=== PATIENT | male | born 1995 | race Caucasian/White ===

== ENCOUNTER 2021-04-22 14:25 | Emergency (ER) | payer OTHER, SELFPAY ==
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
[2021-04-22 14:36] VITALS: BP 104/60; BP 122/78; PULSE 110; PULSE 77; RESP 16; TEMP 36.7; O2SAT 100; BMI 23.1
[2021-04-22] MEDS: Acetaminophen 325 MG TABLET 975 MG PO (15:28)
[2021-04-22] MEDS: Ibuprofen 800 MG TABLET PO (15:29)
[2021-04-22] MEDS: oxyCODONE HCl Immed Release 5 MG TABLET PO (15:29)
[2021-04-22] MEDS: Diphth,Pertus(ACell),Tet Adult 0.5 ML SYRINGE IM (15:38)
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
[2021-04-22] MEDS: Lidocaine HCl 1 % 20 ML VIAL SUBCUT (17:14)
== END 2021-04-22 17:17 | disposition home or self-care (01) ==
PROVIDERS: Emergency Provider Emergency Medicine Emergency Medical Services
DX: S61.511A Laceration without foreign body of right wrist, initial encounter (principal); V03.00XA Pedestrian on foot injured in collision with car, pick-up truck or van in nontraffic accident, initial encounter; Y93.89 Activity, other specified; Y92.59 Other trade areas as the place of occurrence of the external cause; Y99.0 Civilian activity done for income or pay
CPT/HCPCS: 12042; 73110; 90471; 90715; 99283; 99291

== ENCOUNTER 2021-05-04 09:06 | Outpatient (REF) | payer OTHER, SELFPAY ==
--- NOTE | ~2021-05-04 | XR_ITS ---
EXAMINATION: XR HAND, RIGHT CLINICAL INFORMATION: Right hand pain. COMPARISON: Right wrist radiographs dated 04/22/2021. TECHNIQUE: PA, lateral, and oblique views of the right hand. FINDINGS: The bones and soft tissues are normal. No fracture. Alignment is anatomic. Joint spaces are maintained. No erosions or soft tissue calcifications. XR/XR hand RT min 3V IMPRESSION: Unremarkable examination.
== END 2021-05-04 09:07 | disposition home or self-care (01) ==
LOC: HO.HOSX 09:06
PROVIDERS: Visit Provider Orthopaedic Surgery
DX: S63.612A Unspecified sprain of right middle finger, initial encounter (principal); S61.511A Laceration without foreign body of right wrist, initial encounter; R20.0 Anesthesia of skin
CPT/HCPCS: 73130; 99202

== ENCOUNTER → 2021-05-11 13:07 | Outpatient (BNVA) | payer OTHER, SELFPAY | PROVIDERS: Visit Provider Physician Assistant | DX: S61.511D Laceration without foreign body of right wrist, subsequent encounter (principal); M79.89 Other specified soft tissue disorders; R20.0 Anesthesia of skin | CPT/HCPCS: 99212 ==

== ENCOUNTER → 2021-05-25 13:07 | Outpatient (BNVA) | payer OTHER, SELFPAY | PROVIDERS: Visit Provider Physician Assistant | DX: S61.511D Laceration without foreign body of right wrist, subsequent encounter (principal) | CPT/HCPCS: 99212 ==

== ENCOUNTER 2022-04-06 18:29 | Emergency (ER) | payer OTHER, SELFPAY ==
[2022-04-06 19:29] VITALS: BP 122/66; PULSE 82; RESP 18; TEMP 37.6; O2SAT 97; BMI 21.8
--- NOTE | 2022-04-06 19:36 | ED.GENADULT ---
HPI - General Adult General Chief complaint: Skin/Abscess/Foreign Body Stated complaint: rash on bridge of nose Related Data Previous Rx's Medication Instructions Recorded acetaminophen 500 mg tablet 500 mg PO Q8H PRN pain #14 tabs 04/22/21 (Tylenol Extra Strength) cephalexin 500 mg capsule 500 mg PO Q6H 10 days #40 caps 04/22/21 ibuprofen 800 mg tablet 800 mg PO Q8H PRN pain #14 tabs 04/22/21 oxycodone 5 mg tablet 5 mg PO Q6H PRN pain #14 tabs 04/22/21 Allergies Allergy/AdvReac Type Severity Reaction Status Date / Time No Known Allergies Allergy Verified 05/25/21 13:14 [facility] Past Medical History Medical History Asthma Social History Social History Advance Directives: No Advance Directives Information Provided: No Current occupational status: employed Current occupation: rt hand / aircraft structure mechanic Physical Exam ED Vital Signs: Vital Signs - 24 hr 04/06/22 19:29 Temperature 99.7 F Pulse Rate 82 Respiratory Rate 18 Blood Pressure 122/66 Pulse Oximetry 97 Oxygen Delivery Method Room Air BMI result Body Mass Index 21.8 Course Course Course Narrative: RME 27-year-old male is here today for cold-like symptoms. Patient also woke up couple days ago with redness to the top of his nose. 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 Patient denies getting a cut. Patient reports that yesterday the list broke and he notice clear liquid. Patient reports that the area is painful, burning like feeling. Patient also reports to be under lot of stress lately. Patient states that he has cold symptoms for the last few days. Denies any fever or chills. Describes a small lump under his left chin. Area examined. Patient denies history of herpes, however he reports that he had chicken PACs in the past. Will start him on acyclovir. Patient was encouraged to avoid touching his eye as that can also spreads to his eye. Will put him on Keflex questioning scan infection. Will check for COVID, flu RSV. Disposition will be pending results Discharge Plan Discharge Prescriptions: No Action cephalexin 500 mg capsule 500 mg PO Q6H 10 Days Qty: 40 0RF oxycodone 5 mg tablet 5 mg PO Q6H PRN (Reason: pain) Qty: 14 0RF ibuprofen 800 mg tablet 800 mg PO Q8H PRN (Reason: pain) Qty: 14 0RF acetaminophen [Tylenol Extra Strength] 500 mg tablet 500 mg PO Q8H PRN (Reason: pain) Qty: 14 0RF
[2022-04-06 20:35] LABS: Influenza A PCR NEGATIVE (Negative); Influenza B PCR NEGATIVE (Negative); Resp Syncy Virus RNA Qual PCR NEGATIVE (Negative); SARS COV2 PCR INHOUSE NEGATIVE (Negative)
[2022-04-06] MEDS: cephALEXin 500 MG CAPSULE PO (22:54)
== END 2022-04-07 01:00 | disposition left against medical advice (07) ==
PROVIDERS: Nurse Practitioner Family; Emergency Provider Emergency Medicine
DX: R21 Rash and other nonspecific skin eruption (principal); Z20.822 Contact with and (suspected) exposure to COVID-19
CPT/HCPCS: 0241U; 99281; 99283